=== PATIENT | female | born 2005 ===

== ENCOUNTER 2024-12-30 12:47 | Emergency (ER) | payer MEDICAID, SELFPAY ==
--- NOTE | 2024-12-30 | ECG_ITS ---
Test Reason : TACHYCARDIA Blood Pressure : */* mmHG Vent. Rate : 75 BPM Atrial Rate : 75 BPM P-R Int : 148 ms QRS Dur : 78 ms QT Int : 364 ms P-R-T Axes : 46 36 16 degrees QTcB Int : 406 ms Normal sinus rhythm with sinus arrhythmia Normal ECG No previous ECGs available Referred By: Sid Carbajal Electronically Signed By: Michael Chin
[2024-12-30 13:22] VITALS: BP 118/71; PULSE 107; RESP 16; TEMP 36.3; O2SAT 100; BMI 23.8
--- NOTE | 2024-12-30 13:30 | ED.GENADULT ---
HPI - General Adult General Chief complaint: General Medical Stated complaint: body aches not feeling well Time Seen by Provider: 12/30/24 16:43 History of Present Illness ED Provider: Sid Carbajal MD HPI narrative: 19-year-old female with subjective mild non malodorous vaginal discharge. No itching denies any genital lesions. She has multiple sexual partners no physical protection or contraception. No breast pain, no vaginal bleeding, denies flank pain or dysuria. No prior STIs. Related Data Allergies Allergy/AdvReac Type Severity Reaction Status Date / Time No Known Allergies Allergy Verified 12/30/24 13:25 [facility] Social History Social History Smoked in Last 30 Days: No Use of substances other than those prescribed or required for medical reasons: No Advance Directives: No Advance Directives Information Provided: No Do you have a plan to hurt others: No Plan Patient : No Physical Exam ED Vital Signs: Vital Signs - 24 hr 12/30/24 13:22 12/30/24 17:14 12/30/24 18:22 Temperature 97.3 F 97.9 F Pulse Rate 107 H 86 86 Respiratory Rate 16 16 16 Blood Pressure 118/71 113/70 113/70 Pulse Oximetry 100 98 98 Oxygen Delivery Method Room Air Room Air Room Air BMI result Body Mass Index 23.8 EXAM: Gen: Alert, awake, well appearing, well hydrated. Head: Atraumatic Eyes: Anicteric, Normal conjunctiva. ENT: Moist mucosa, no pallor. ? Neck: Supple. Skin: ?No observable rash or bruising on exposed or examined skin Respiratory: Breathing comfortably, No distress.Clear to auscultation bilaterally, symmetric chest expansion, No wheeze, rales, ronchi. Cardiovascular: Regular rate and rhythm. Murmur systolic.. Well perfused periphery, warm extremities. No edema. ? Abdominal: No focal tenderness. Soft, no objective distension. No palpable masses or obvious organomegaly. ?No guarding, no rebound tenderness or other peritoneal findings. : No flank tenderness. Declined the pelvic exam that I offered Neuro: Alert. Gross movement of all extremities intact. ? Psych: Calm. Cooperative. MSK: No grossly visible deformity. Vital signs: See flowsheet Medical Decision Making Medical Decision Making MDM Narrative: Medical Decision Makin-year-old healthy female with vaginal discharge. Denied any other medical or surgical history or daily meds. Smokes marijuana. Vaginal discharge is thin no malodor. Denies dysuria or flank or abdominal pain. Amenable to self swab, declined pelvic exam that was offered. UA not suggestive of UTI. Incidental systolic murmur noted on exam. Looks euvolemic well-perfused has no known cardiac history strongly recommend that she call Cardiology to follow up. Preliminary Favored Differential Diagnosis: STI, Mary Kay BV or other vaginal infection, UTI, systolic murmur of unclear clinical significance unknown to patient among additional considered etiologies Testing Interpreted Independently: Not Applicable Radiology or Lab testing Results Reviewed: Not Applicable Consults: Not Applicable Independent Historians/External Chart Reviews: Not Applicable Social Determinants of Health Impacting MDM/Planning: Not Applicable Lab Data 12/30/24 13:39 12/30/24 13:39 Labs: Lab Results 12/30/24 12/30/24 Range/Units 13:39 17:16 WBC 9.5 (4.8-10.8) X10*3/uL RBC 4.21 (4.20-5.50) X10*6/uL Hgb 12.7 (12.0-16.0) g/dl Hct 37.6 (37.0-47.0) % MCV 89.3 (80.0-98.0) fL MCH 30.2 (27.0-33.0) pg MCHC 33.8 (31.0-35.0) g/dl RDW 12.9 (11.0-16.0) % Plt Count 269 (160-400) X10*3/uL MPV 9.5 (9.4-12.3) fL Immature Gran % (Auto) 0.2 (0.0-0.4) % Neut % (Auto) 60.8 (45-73) % Lymph % (Auto) 29.9 (20-40) % [place] % (Auto) 8.0 (2-11) % Eos % (Auto) 0.7 (0-4) % Baso % (Auto) 0.4 (0-2) % Lymph # (Auto) 2.8 (1.2-4.9) X10*3/uL [place] # (Auto) 0.8 (0.1-1.2) X10*3/uL Eos # (Auto) 0.1 (0.0-0.4) X10*3/uL Baso # (Auto) 0.0 (0.0-0.2) X10*3/uL Abs Immat Gran (auto) 0.02 (0.00-0.03) X10*3/uL Absolute Neuts (auto) 5.8 (2.0-8.3) x10*3/uL Absolute Nucleated RBC 0.000 (0.0-0.012) X10*3/uL Nucleated RBC % (auto) 0.0 (0.0-0.2) /100WBC Sodium 139 (135-145) mmol/L Potassium 3.8 (3.3-5.1) mmol/L Chloride 108 (96-108) mmol/L Carbon Dioxide 24 (22-29) mmol/L Anion Gap 11 L (12-20) BUN 10 (9-16) mg/dL Creatinine 0.71 (0.5-1.4) mg/dL Estim Creat Clear Calc 98.5 Estimated GFR > 60 Random Glucose 76 (60-115) mg/dL Calcium 8.9 (8.4-10.2) mg/dL Total Bilirubin 0.1 (0.0-1.0) mg/dL AST 21 (5-31) U/L ALT 12 (0-31) U/L Alkaline Phosphatase 55 (39-117) U/L Total Protein 7.2 (6.5-8.0) g/dL Albumin 4.5 (3.5-5.0) g/dL Beta HCG, Quant < 2 mIU/mL Urine Color Yellow Urine Appearance Clear Urine pH 6.5 (5.0-9.0) Ur Specific [place] 1.025 (1.005-1.025) Urine Protein Negative (Neg-Trace) mg/dL Urine Glucose (UA) Negative (Negative) mg/dL Urine Ketones Negative (Negative) mg/dL Urine Blood Negative (Negative) Urine Nitrite Negative (Negative) Ur Leukocyte Esterase Small (1+) H (Negative) Urine RBC 0-2 (0-2) /HPF Urine WBC 0-5 (0-5) /HPF Ur Squamous Epith Cells 0-2 (0-2) /HPF Urine Bacteria None Seen (None Seen) Hyaline Casts 0-2 (0-2) /LPF Urine Test NEGATIVE (NEGATIVE) Chlam trachomat DNA PCR NOT DETECTED (Not Detect.) N.gonorrhoeae DNA (PCR) NOT DETECTED (Not Detect.) T. vaginalis (PCR) NOT DETECTED (Not Detect) Bact vaginosis (PCR) NEGATIVE (Negative) C. krusei/glabrata (PCR) NOT DETECTED (Not Detect) Mary Kay group (PCR) DETECTED A (Not Detect) Discharge Plan Discharge Clinical Impression: Vaginal discharge, Heart murmur, systolic Patient Disposition: Home, Self-Care Instructions: Vaginal Discharge (ED) Additional Instructions: DISCHARGE DIAGNOSES: Vaginal discharge diagnostic testing was done urinalysis did not show infection we will call you back if your STD testing has any important results to discuss with you Heart murmur needs to be evaluated as outpatient. HISTORY OF PRESENTATION: ?Vaginal discharge EMERGENCY DEPARTMENT COURSE,TESTS, TREATMENTS: While in the ED today we heard a murmuyou need outpatient follow up to better evaluate this You had swabs performed which have not fully returned evaluating for STDs. Urinalysis did not suggest UTI DISCHARGE MEDICATIONS: ?[We have made no changes to your regular medication regimen] FOLLOW-UP: ?Call your primary or general physician soon as possible to discuss your symptoms, your ED visit and to discuss follow up plans Call your primary doctor for follow up or referral. You may call cardiology to discuss your murmur for follow up in the office with them and comprehensive echocardiogram if you do not have a primary doctor INSTRUCTIONS ?& RETURN PRECAUTIONS: If any symptoms change first call your primary physician, if it is after-hours your primary doctors office should have a provider lawn care professional you can speak with. If the symptoms are severe or very concerning to you then call 911 or return to the ED. Sid Carbajal MD Emergency Physician [facility] Referrals: [facility] [place] [Provider Group] Referral Note: Call to discuss with the office staff if you do not have an primary physician. Tell him that we diagnosed murmur that you need followed up Sid Carbajal MD [Emergency Provider, Emergency Medicine] Stand Alone Forms: Work/School Release Interventions: ED Discharge Assessment Last Done: 12/30/24 18:22 Discharge Date/Time: 12/30/24 18:23 Print Language: Citizen Of [place]
[2024-12-30 13:44] LABS: Hematocrit 37.6 % (37.0-47.0); Hemoglobin 12.7 g/dl (12.0-16.0); Imm Gran Abs Auto 0.02 X10*3/uL (0.00-0.03); Imm Gran Pct Auto 0.2 % (0.0-0.4); Lymphocytes Absolute Auto 2.8 X10*3/uL (1.2-4.9); MANUAL DIFF FLAG NO; Mean Corpuscular HGB Conc 33.8 g/dl (31.0-35.0); Mean Corpuscular Hemoglobin 30.2 pg (27.0-33.0); Mean Corpuscular Volume 89.3 fL (80.0-98.0); NRBC Abs Auto 0.000 X10*3/uL (0.0-0.012); NRBC Pct Auto 0.0 /100WBC (0.0-0.2); Platelet Count 269 X10*3/uL (160-400); Red Blood Count 4.21 X10*6/uL (4.20-5.50); White Blood Count 9.5 X10*3/uL (4.8-10.8)
[2024-12-30 14:09] LABS: Alanine Aminotransferase 12 U/L (0-31); Albumin Level 4.5 g/dL (3.5-5.0); Alkaline Phosphatase 55 U/L (39-117); Anion Gap 11 (12-20); Aspartate Amino Transferase 21 U/L (5-31); Blood Urea Nitrogen 10 mg/dL (9-16); Calcium 8.9 mg/dL (8.4-10.2); Carbon Dioxide 24 mmol/L (22-29); Chloride 108 mmol/L (96-108); Creatinine Clr Calc Pharmacy 98.5; Estimated Glomerular Filt Rate > 60; Potassium 3.8 mmol/L (3.3-5.1); Sodium 139 mmol/L (135-145); Total Protein 7.2 g/dL (6.5-8.0)
[2024-12-30 17:14] VITALS: BP 113/70; PULSE 86; RESP 16; O2SAT 98
[2024-12-30 17:26] LABS: Appearance Urine Clear; Glucose Urine UA Negative (Negative); PH 6.5 (5.0-9.0); Specific Gravity - Urine 1.025 (1.005-1.025); UMIC TRIGGER UACC YES
[2024-12-30 17:27] LABS: UPreg QC Valid YES
[2024-12-30 17:46] LABS: UACC Culture Trigger YES
[2024-12-30 18:21] LABS: Bacterial Vaginosis PCR NEGATIVE (Negative); Candida Group PCR DETECTED (Not Detect); Candida glab krusei PCR NOT DETECTED (Not Detect); Trichomonas vaginalis PCR NOT DETECTED (Not Detect)
[2024-12-30 18:22] VITALS: BP 113/70; PULSE 86; RESP 16; TEMP 36.6; O2SAT 98
[2024-12-30 18:54] LABS: CT PCR NOT DETECTED (Not Detect.); NG PCR NOT DETECTED (Not Detect.)
== END 2024-12-30 18:23 | disposition home or self-care (01) ==
PROVIDERS: Physician Assistant; Emergency Provider Emergency Medicine
DX: N89.8 Other specified noninflammatory disorders of vagina (principal); R01.1 Cardiac murmur, unspecified
CPT/HCPCS: 36415; 80053; 81001; 81025; 81515; 84702; 85025; 87086; 87491; 87591; 93005; 99283; 99284

== ENCOUNTER → 2024-12-30 17:24 | Outpatient (BNV) | payer MEDICAID, SELFPAY | PROVIDERS: Emergency Provider Emergency Medicine; Visit Provider Internal Medicine Cardiovascular Disease | DX: R00.0 Tachycardia, unspecified (principal) | CPT/HCPCS: 93010 ==